=== PATIENT | female | born 1950 | race Two or more races ===

== ENCOUNTER 2018-04-05 05:30 | Day surgery (SDC) | payer OTHER | END 2018-04-05 11:36 | disposition home or self-care (01) | LOC: AMB-ENDOS 05:30 | DX: D12.0 Benign neoplasm of cecum (principal); D12.5 Benign neoplasm of sigmoid colon ==

== ENCOUNTER → 2018-05-16 06:00 | Outpatient (CLI) | payer OTHER ==
[~2018-05-16 06:00] MED LIST: HYDRALAZINE HC100 MG; LANTUS SOL100 UNIT/1; RENVELA PO
== END | disposition home or self-care (01) ==
LOC: RAD 06:00 → SURH 05-23 07:00 → EDSTATUS 05-23 09:00 → RECOVERY 05-23 09:00
DX: D37.4 Neoplasm of uncertain behavior of colon (principal); D12.3 Benign neoplasm of transverse colon; D12.2 Benign neoplasm of ascending colon; D12.5 Benign neoplasm of sigmoid colon; Z01.810 Encounter for preprocedural cardiovascular examination; Z01.811 Encounter for preprocedural respiratory examination; Z01.812 Encounter for preprocedural laboratory examination

== ENCOUNTER 2018-07-13 09:30 | Inpatient (IN) | payer OTHER ==
[~2018-07-13] VITALS: Ht 152.4 cm; Wt 49.0 kg
[2018-07-14] MEDS ORDERED: RENAGEL800 MG PO (10:30)
[2018-07-19] MEDS ORDERED: INTESTINEX680 M1 PO (16:59)
[2018-07-19] MEDS ORDERED: ULTRACET PO (16:59)
== END 2018-07-19 18:14 | disposition home or self-care (01) | DRG 329 ==
LOC: SURG 07-14 09:21 → O/R 07-14 09:21 → RECOVERY 07-14 09:30 → SURG 07-14 19:46 → RECOVERY 07-14 21:45 → SURG 07-15 13:10
PROVIDERS: ADMIT Surgery
PROC: 07TC4ZZ Resection of Pelvis Lymphatic, Percutaneous Endoscopic Approach (ICD-10-PCS; 2018-07-14)
PROC: 0D1B4Z4 Bypass Ileum to Cutaneous, Percutaneous Endoscopic Approach (ICD-10-PCS; 2018-07-14)
PROC: 0DJD8ZZ Inspection of Lower Intestinal Tract, Via Natural or Artificial Opening Endoscopic (ICD-10-PCS; 2018-07-14)
PROC: 4A12X4Z Monitoring of Cardiac Electrical Activity, External Approach (ICD-10-PCS; 2018-07-14)
PROC: 0DTF4ZZ Resection of Right Large Intestine, Percutaneous Endoscopic Approach (ICD-10-PCS; principal; 2018-07-14 21:45)
PROC: 5A1D70Z Performance of Urinary Filtration, Intermittent, Less than 6 Hours Per Day (ICD-10-PCS; 2018-07-15)
DX: D12.2 Benign neoplasm of ascending colon (principal); N18.6 End stage renal disease; I12.0 Hypertensive chronic kidney disease with stage 5 chronic kidney disease or end stage renal disease; D12.7 Benign neoplasm of rectosigmoid junction; E11.22 Type 2 diabetes mellitus with diabetic chronic kidney disease; E11.319 Type 2 diabetes mellitus with unspecified diabetic retinopathy without macular edema; Z99.2 Dependence on renal dialysis; Z79.4 Long term (current) use of insulin

== ENCOUNTER 2018-08-26 09:50 | Emergency (ER) | payer OTHER ==
[~2018-08-26] VITALS: Ht 149.9 cm; Wt 44.9 kg
[~2018-08-26 09:50] MED LIST changes: +INTESTINEX680 M1 PO; +RENAGEL800 MG PO; +ULTRACET PO
== END 2018-08-26 14:00 | disposition home or self-care (01) ==
LOC: ER 09:50
DX: K94.13 Enterostomy malfunction (principal)

== ENCOUNTER 2018-11-03 11:15 | Inpatient (IN) | payer OTHER ==
[~2018-11-03] VITALS: Ht 152.4 cm; Wt 46.3 kg
[2018-11-15] MEDS ORDERED: INTESTINEX680 M1 PO (08:17)
== END 2018-11-15 10:32 | disposition home or self-care (01) | DRG 329 ==
LOC: ADM 11:15 → O/R 11-07 08:25 → SURH 11-07 08:25 → EDSTATUS 11-07 11:15 → CIR.AMB 11-07 11:15 → SURH 11-07 13:48
PROVIDERS: ADMIT Surgery
PROC: 5A1D70Z Performance of Urinary Filtration, Intermittent, Less than 6 Hours Per Day (ICD-10-PCS; 2018-11-07)
PROC: 0DQB4ZZ Repair Ileum, Percutaneous Endoscopic Approach (ICD-10-PCS; principal; 2018-11-10 05:30)
PROC: 30233N1 Transfusion of Nonautologous Red Blood Cells into Peripheral Vein, Percutaneous Approach (ICD-10-PCS; 2018-11-13)
DX: D12.5 Benign neoplasm of sigmoid colon (principal); N18.6 End stage renal disease; D62 Acute posthemorrhagic anemia; J98.11 Atelectasis; K92.0 Hematemesis; I12.0 Hypertensive chronic kidney disease with stage 5 chronic kidney disease or end stage renal disease; N17.8 Other acute kidney failure; E11.22 Type 2 diabetes mellitus with diabetic chronic kidney disease; D12.0 Benign neoplasm of cecum; Z99.2 Dependence on renal dialysis; Z79.4 Long term (current) use of insulin; E11.65 Type 2 diabetes mellitus with hyperglycemia; E87.5 Hyperkalemia; Z43.2 Encounter for attention to ileostomy; K66.0 Peritoneal adhesions (postprocedural) (postinfection)